=== PATIENT | female | born 1965 | race Caucasian/White ===

== ENCOUNTER 2017-05-28 17:12 | Emergency (ER) | payer OTHER ==
[~2017-05-28] VITALS: Ht 157.5 cm; Wt 64.9 kg
[2017-05-28] MEDS ORDERED: SULF1TAB48 PO (17:41)
--- NOTE | 2017-05-28 18:05 | NUR ---
PT IS IN ROOM #2B. DR CARLISLE EVALUATED THE PT.
[2017-05-28 18:20] VITALS: BP 136/87
--- NOTE | 2017-05-28 18:22 | NUR ---
DR CARLISLE INSPECTED PT's WOUND. GAUZE DRESSING WAS APPLIED. NO BLEEDING. PT WAS D/C TO HOME. D/C INSTRUCTIONS GIVEN APOORVA PT.
== END 2017-05-28 18:36 | disposition home or self-care (01) ==
LOC: ER 17:13
DX: Z48.01 Encounter for change or removal of surgical wound dressing (principal); L02.212 Cutaneous abscess of back [any part, except buttock and flank]
CPT/HCPCS: 99282; A4663

== ENCOUNTER 2017-06-17 07:45 | Emergency (ER) | payer OTHER ==
[~2017-06-17] VITALS: Ht 154.9 cm; Wt 65.8 kg
[~2017-06-17 07:45] MED LIST: SULF1TAB48 PO
--- NOTE | 2017-06-17 08:04 | NUR ---
DR Raymond at the bedside for eval and exam.
[2017-06-17 08:13] VITALS: BP 114/69
--- NOTE | 2017-06-17 08:13 | NUR ---
Patient discharged to home in stable conditon. Written and verbal after care instructions given. Patient verbalizes understanding of instructions.
== END 2017-06-17 08:14 | disposition home or self-care (01) ==
LOC: ER 07:45
DX: L02.212 Cutaneous abscess of back [any part, except buttock and flank] (principal); Z98.890 Other specified postprocedural states
CPT/HCPCS: 99281; A4663

== ENCOUNTER 2019-03-07 16:02 | Emergency (ER) | payer OTHER ==
[~2019-03-07] VITALS: Ht 160 cm; Wt 56.7 kg
--- NOTE | 2019-03-07 17:23 | NUR ---
Patient is AOx4, came with her own crutches. Pt reinstructed on proper use of crutches. Patient able to demonstrate correct use of crutches. Patient discharged to home in stable conditon. Written and verbal after care instructions given to patient. Patient verbalizes understanding of instructions.
[2019-03-07 17:26] VITALS: BP 122/70
== END 2019-03-07 17:27 | disposition home or self-care (01) ==
LOC: ER 16:02
DX: S92.311A Displaced fracture of first metatarsal bone, right foot, initial encounter for closed fracture (principal); S92.321A Displaced fracture of second metatarsal bone, right foot, initial encounter for closed fracture; W01.0XXA Fall on same level from slipping, tripping and stumbling without subsequent striking against object, initial encounter; Y93.89 Activity, other specified; Y92.89 Other specified places as the place of occurrence of the external cause; Y99.8 Other external cause status
CPT/HCPCS: 73630; A4663